=== PATIENT | female | born 1950 | race Caucasian/White ===

== ENCOUNTER 2023-12-15 07:30 | Inpatient (IN) ==
[~2023-12-15 07:30] MED LIST: Naloxone 0.4 mg VIAL 0.4 mg/ml 1 ml VIAL IV PRN; Ondansetron 4 mg VIAL 2 MG/ML 2 ml VIAL IV PRN
[2023-12-15] MEDS ORDERED: ceFAZolin 2 GM PREMIX 2 GM/50 ML BAG ONE (10:32)
[2023-12-15] MEDS ORDERED: Tranexamic Acid 1 GM/100ML BAG 2,000 MG/200 ML BAG IV ONE (10:32)
[2023-12-15 10:54] LABS: Rapid COVID-19 Molecular Undetected (Undetected)
[2023-12-15] MEDS ORDERED: Ondansetron 4 mg VIAL 2 MG/ML 2 ml VIAL ONE (11:19)
[2023-12-15] MEDS ORDERED: Dexamethasone IV 4 MG/ML VIAL 1 ml VIAL ONE ×2 (11:19→11:30)
[2023-12-15] MEDS ORDERED: Propofol 10 MG/ML 20 ML BTL ONE (11:19)
[2023-12-15] MEDS ORDERED: Lidocaine 2% PF 5 ML VIAL ONE (11:19)
[2023-12-15] MEDS ORDERED: fentaNYL 250 mcg/5 ml 50 MCG/ML 5 ml VIAL (250 MCG) ONE (11:19)
[2023-12-15] MEDS ORDERED: Midazolam 2 mg/2 ml VIAL 1 mg/ml 2 ml VIAL (2 mg) ONE (11:30)
[2023-12-15] MEDS ORDERED: ROPIVACAINE 5 MG/ML 30 ML BTL (0.5%) ONE ×2 (11:30→11:46)
[2023-12-15] MEDS ORDERED: Acetaminophen IV 1 GM/100ML 1,000 MG/100 ML BAG IV ONE (13:02)
[2023-12-15] MEDS ORDERED: HYDROmorphone 0.5 MG/0.5 ML SYRINGE ONE (14:17)
[2023-12-15] MEDS ORDERED: Ondansetron 4 mg VIAL 2 MG/ML 2 ml VIAL IV PRN (15:36)
[2023-12-15] MEDS ORDERED: Lactulose 30 ml UDC PO PRN (15:36)
[2023-12-15] MEDS ORDERED: Magnesium Hydroxide LIQ 30 ML UDC PO PRN (15:36)
[2023-12-15] MEDS ORDERED: Ondansetron ODT 4 mg TAB 4 MG TAB PO PRN (15:36)
[2023-12-15] MEDS ORDERED: Morphine 2 MG/ML SYRINGE IV PRN (15:36)
[2023-12-15] MEDS ORDERED: fentaNYL 100 mcg/2 ml 50 MCG/ML VIAL ONE (15:45)
[2023-12-15] MEDS: fentaNYL 100 mcg/2 ml 50 MCG/ML VIAL IV PRN (15:46)
[2023-12-15] MEDS: Lactated Ringers 1000 ml BAG 1,000 ML IV SCH ×2 (17:17→18:27)
[2023-12-15] MEDS: Buffered Lidocaine 1% SYRIN 1 ml INTRADERM ONE (18:27)
[2023-12-15] MEDS: ceFAZolin 1 GM ADVAN 1 GM in NS 0.9% 50 ML 50 ML IVPB SCH (19:53)
[2023-12-15] MEDS: Magnesium Hydroxide LIQ 30 ML UDC PO SCH (19:53)
[2023-12-16 06:48] LABS: Hemoglobin 13.2 g/dL (11.5-14.3); Mean Platelet Volume 7.4 fL (7.5-11.2); Platelet Count 233 10^3/uL (150-450)
[2023-12-16 07:06] LABS: Calcium 8.4 mg/dL (8.6-10.3); Creatinine, Serum 0.94 mg/dL (0.51-0.95); Potassium 4.3 mmol/L (3.5-5.0); eGFR CKD-EPI 64.1 (>60)
[2023-12-16] MEDS: Vitamin THERAPEUTIC TAB PO SCH (08:18)
[2023-12-16 10:46] VITALS: BP 118/52
== END 2023-12-16 15:15 | disposition home or self-care (01) | DRG 470 ==
LOC: AA 10:17 → OBSVTOIN 10:17 → INTOOBSV 10:17 → SSU 17:14
PROVIDERS: ADMIT Orthopaedic Surgery Adult Reconstructive Orthopaedic Surgery; ATTEND Orthopaedic Surgery Adult Reconstructive Orthopaedic Surgery